=== PATIENT | female | born 1975 | race Caucasian/White ===

== ENCOUNTER 2018-12-06 16:25 | Emergency (ER) | payer SELFPAY ==
[~2018-12-06] VITALS: Ht 162.6 cm; Wt 67.6 kg
[~2018-12-06 16:25] MED LIST: CYCL10TA7 PO; IBUP-1542 PO
[2018-12-06 16:51] VITALS: BP 123/64; PULSE 67; RESP 18; Ht 162.6 cm; Wt 67.6 kg
[2018-12-06] MEDS ORDERED: KETOROLAC 30 MG INJ IM STA (17:32)
== END 2018-12-06 17:46 | disposition home or self-care (01) ==
LOC: FTE 16:25
DX: S13.4XXA Sprain of ligaments of cervical spine, initial encounter (principal); M62.830 Muscle spasm of back; V49.40XA Driver injured in collision with unspecified motor vehicles in traffic accident, initial encounter
CPT/HCPCS: 96372; 99284; J1885